=== PATIENT | female | born 1990 | race Caucasian/White ===

== ENCOUNTER 2017-04-20 16:35 | Emergency (ER) | payer OTHER ==
[~2017-04-20] VITALS: Ht 170.2 cm; Wt 74.8 kg
[2017-04-20 16:47] VITALS: BP 146/84
--- NOTE | 2017-04-20 18:04 | NUR ---
[facility] [place] CALLED [phone] DR MERCEDES TABLEAU ANALYST
[2017-04-20] MEDS ORDERED: HYDROCODONE/APAP 5/325MG 1 EACH TABLET PO ONE (18:30)
[2017-04-20] MEDS ORDERED: HYDROCODONE/APAP 5/325MG 1 EACH TABLET ONE (18:40)
--- NOTE | 2017-04-20 18:51 | NUR ---
CALLED [facility], REPAGED DR NAVARRO.
--- NOTE | 2017-04-20 18:56 | NUR ---
DR NAVARRO ON THE PHONE WITH DR BUTCHER.
--- NOTE | 2017-04-20 19:12 | NUR ---
PT TAKEN TO CT.
--- NOTE | 2017-04-20 19:14 | NUR ---
REPORT GIVEN TO LUANNE SWARTZ FOR JANESSA.
== END 2017-04-20 20:19 | disposition home or self-care (01) ==
LOC: ER 16:38
DX: S82.142A Displaced bicondylar fracture of left tibia, initial encounter for closed fracture (principal); Z90.89 Acquired absence of other organs; Z91.018 Allergy to other foods; X58.XXXA Exposure to other specified factors, initial encounter; Y93.55 Activity, bike riding; Y92.89 Other specified places as the place of occurrence of the external cause; Y99.8 Other external cause status
CPT/HCPCS: 29505; 73564; 73700; 99284; A4606; A6402; Z7610